=== PATIENT | male | born 1985 | race Two or more races ===

== ENCOUNTER 2017-04-02 08:17 | Emergency (ER) | payer SELFPAY | END 2017-04-02 10:50 | disposition home or self-care (01) | LOC: D.ER 08:17 | DX: S53.115A Anterior dislocation of left ulnohumeral joint, initial encounter (principal); V86.59XA Driver of other special all-terrain or other off-road motor vehicle injured in nontraffic accident, initial encounter; Y93.89 Activity, other specified; Y92.029 Unspecified place in mobile home as the place of occurrence of the external cause ==